=== PATIENT | male | born 1980 ===

== ENCOUNTER 2022-07-10 21:45 | Emergency (ER) | payer SELFPAY ==
[2022-07-10] MEDS: Nitroglycerin 0.4 MG Tab.SL SL PRN ×2 (21:55→22:00)
[2022-07-10] MEDS ORDERED: HYDROmorphone 2 MG/ML SDV IVPUSH ONE ×2 (22:06→22:57)
[2022-07-10 22:48] LABS: ESTIMATED GFR 111 mL/min (>60)
[2022-07-10 22:54] LABS: TROPONIN I HIGH SENSITIVITY 12.3 pg/ml (<=60.4)
[2022-07-10] MEDS ORDERED: HYDROmorphone 2 MG/ML Syringe ONE (23:09)
[2022-07-10] MEDS ORDERED: Ketorolac 30 MG/ML SDV IVPUSH ONE (23:41)
== END 2022-07-11 00:01 | disposition left against medical advice (07) ==
LOC: LB.ED 21:45
DX: R07.9 Chest pain, unspecified (principal); E11.9 Type 2 diabetes mellitus without complications; F17.200 Nicotine dependence, unspecified, uncomplicated
CPT/HCPCS: 36415; 70450; 71250; 72125; 80053; 83880; 84484; 85025; 85610; 93005; 93010; 96374; 96376; 99282; 99285; J1170